=== PATIENT | male | born 1945 | race African-American/Black ===

== ENCOUNTER 2020-08-07 10:42 | Outpatient (CLI) | payer MEDICARE ==
--- NOTE | 2020-08-07 11:10 | RAD ---
EXAM: XR Lumbar Spine 2 Or 3 View PROVIDED CLINICAL HISTORY: Back pain with radiculopathy COMPARISON: None FINDINGS: There is left convexity curvature of the lumbar spine. Sagittal lumbar alignment appears normal. 5 no nrib-bearing lumbar-type vertebral bodies are demonstrated. Vertebral body heights appear preserved. Intervertebral disc space heights appear preserved. Annular osteophyte formation and multi level facet arthritis are demonstrated. IMPRESSION: Lumbar degenerative change.
== END 2020-08-07 10:43 | disposition home or self-care (01) ==
LOC: BICRAD 10:42
PROVIDERS: ATTEND Family Medicine
DX: M54.9 Dorsalgia, unspecified (principal); M47.816 Spondylosis without myelopathy or radiculopathy, lumbar region
CPT/HCPCS: 72100